=== PATIENT | male | born 1980 ===

== ENCOUNTER 2016-09-18 13:04 | Emergency (ER) | payer SELFPAY ==
[2016-09-18 13:11] VITALS: BP 128/80; PULSE 80; RESP 21; TEMP 97.6; O2SAT 96
== END 2016-09-18 14:41 | disposition left against medical advice (07) ==
LOC: C.ER 13:04
DX: F11.10 Opioid abuse, uncomplicated (principal); Z02.9 Encounter for administrative examinations, unspecified